=== PATIENT | female | born 1945 | race Caucasian/White ===

== ENCOUNTER 2023-11-10 08:45 | Emergency (ER) | payer MEDICARE ==
[~2023-11-10] VITALS: Ht 167.6 cm; Wt 76.8 kg
[2023-11-10 08:53] VITALS: TEMP 97.8
[2023-11-10] MEDS ORDERED: fentaNYL 50 MCG/ML 2 ML VIAL IV ONE ×2 (09:15→10:00)
[2023-11-10] MEDS ORDERED: LORazepam 2 MG/ML 1 ML VIAL IV ONE (09:15)
[2023-11-10] MEDS ORDERED: NS 500 ML IV ONE (10:38)
[2023-11-10] MEDS ORDERED: NORCO 325 MG-51 TAB PO (11:12)
[2023-11-10 12:13] VITALS: BP 142/91; PULSE 85
== END 2023-11-10 12:13 | disposition home or self-care (01) ==
LOC: COL.ER 08:45
DX: S43.004A Unspecified dislocation of right shoulder joint, initial encounter (principal); Z79.01 Long term (current) use of anticoagulants; Z87.891 Personal history of nicotine dependence; W01.0XXA Fall on same level from slipping, tripping and stumbling without subsequent striking against object, initial encounter; Y92.009 Unspecified place in unspecified non-institutional (private) residence as the place of occurrence of the external cause
CPT/HCPCS: J2060; J2704; J3010; J7040